=== PATIENT | female | born 1990 | race Caucasian/White ===

== ENCOUNTER 2022-05-18 15:47 | Emergency (ER) | payer MEDICARE, SELFPAY ==
[2022-05-18 15:54] VITALS: BP 117/89; PULSE 85; RESP 16; TEMP 37.2; O2SAT 99
--- NOTE | 2022-05-18 16:17 | ED.NECK ---
HPI - Neck Pain/Injury General Chief Complaint: Neck Pain/Injury Stated Complaint: Left side neck shoulder arm pain Time Seen by Provider: 05/18/22 16:17 Source: patient Mode of arrival: ambulatory Limitations: no limitations History of Present Illness HPI Narrative: 32-year-old female with Down syndrome presented with mother for complaint of possible left shoulder pain. Mother reports she appears to complain of pain around the left neck, shoulder, and arm. Mother endorses she has been guarding the left arm for about 5 days. Denies injury. She has been given Tylenol and ibuprofen and used ice packs. Mother denies apparent abdominal pain, vomiting, urinary symptoms, fevers or chills. Related Data Home Medications Medication Instructions Recorded Confirmed No Home Medications 05/18/22 05/18/22 Allergies Allergy/AdvReac Type Severity Reaction Status Date / Time Sulfa (Sulfonamide Allergy Rash Verified 05/18/22 16:04 Antibiotics) Review of Systems Review of Systems: CONSTITUTIONAL: Denies body aches, fever, chills EYES: Denies visual changes ENT: Denies rhinorrhea, congestion CARDIOVASCULAR: Denies chest pain, palpitations, or edema. RESPIRATORY: Denies cough or dyspnea. GASTROINTESTINAL: Denies abdominal pain, nausea, vomiting, or diarrhea. SKIN: Denies rash, or wounds. MUSCULOSKELETAL: Reports joint pain, myalgia. NEUROLOGIC: Denies headache, numbness, tingling, or weakness. All systems reviewed & are unremarkable except as noted in HPI and below PMFSH Comments At time of signature, I have reviewed and agree with nursing past medical, surgical, social and family history unless otherwise noted. Please see nursing chart for further information. There is no relevant family history pertinent to the presenting complaint Exam Narrative: GENERAL: Well-appearing, answers yes and no; no distress HEAD: Normocephalic, atraumatic. EYES: PERRLA, conjunctivae clear NECK: Supple. No vertebral point tenderness, full range of motion CHEST: LCTAB HEART: Regular rate and rhythm. Normal and equal peripheral pulses. EXTREMITIES: Left arm has normal strength and sensation, tolerates passive range of motion but endorses pain with movement (mother states she is squeezing my hand which she thinks indicates pain) no edema or ecchymosis or skin rash, No point tenderness. No open wounds or obvious deformity; alignment normal, pulse palpable and equal bilaterally, skin warm, dry, pink. Capillary refill less than 3 seconds. SKIN: Warm, dry, no rash. Course Course Emergency Course: Patient is aware of diagnosis, understands and agrees to treatment plan. Anticipatory guidance given. Patient agrees to follow-up as directed and is aware of reasons to seek care at the emergency department. Portions of this record may have been created with voice recognition software Level of Care: Express Care Visit Vital Signs Vital signs: Vital Signs Temperature 98.9 F 05/18/22 15:54 Pulse Rate 85 05/18/22 15:54 Respiratory Rate 16 05/18/22 15:54 Blood Pressure 117/89 05/18/22 15:54 Pulse Oximetry 99 05/18/22 15:54 Oxygen Delivery Room Air 05/18/22 15:54 Temperature 98.9 F 05/18/22 15:54 Pulse Rate 85 05/18/22 15:54 Respiratory Rate 16 05/18/22 15:54 Blood Pressure 117/89 05/18/22 15:54 Pulse Oximetry 99 05/18/22 15:54 Oxygen Delivery Room Air 05/18/22 15:54 Reviewed MDM - Neck Pain/Injury MDM Narrative Medical decision making narrative: Mother will continue supportive measures. Given no concern for injury, will defer imaging at this time. Mother is aware of signs and symptoms to go to the ER. She is stable and appropriate for outpatient treatment and follow-up. Differential Diagnosis Differential diagnosis: Likely disc disorder of cervical region, cervical radiculopathy, torticollis, cervical spondylosis and strain of neck muscle Discharge Plan Discharge Clinical Impression
== END 2022-05-18 16:38 | disposition home or self-care (01) ==
PROVIDERS: Emergency Provider Nurse Practitioner Family
DX: M54.2 Cervicalgia (principal); M25.512 Pain in left shoulder; M79.602 Pain in left arm; Q90.9 Down syndrome, unspecified
CPT/HCPCS: 99212; G0463